=== PATIENT | female | born 1990 | race Caucasian/White ===

== ENCOUNTER 2017-09-17 18:32 | Emergency (ER) | payer OTHER ==
[~2017-09-17] VITALS: Ht 160 cm; Wt 70.8 kg
[~2017-09-17 18:32] MED LIST: ACETAMINOPHEN-1 EAC1 PO; ALKA-SELTZER P1 EA14 PO; AMOXICILLIN 50500 MG PO; AMOXICILLIN500 M1 PO; AMOXIL 875 MG875 M1 PO; CIPROFLOXACIN500 M1 PO; COLACE100 MG PO; FLEXERIL PO; HYDROCODONE-AP1 EAC6 PO; IBUPROFEN 200200 M1 PO; IBUPROFEN 800800 M1 PO; LIDOCAINE VISC100 ML SWISH&SPIT; MACROBID 100 M100 M1 PO; MIRALAX17 GM PO; NORCO 5-325 TA1 EAC1 PO; NORCO 5-325 TA1 EACH PO; PREDNISONE 10 M10 M1 PO; TMP-POLYMYXIN B10 ML OP; ZOFRAN4 MG PO
[2017-09-17] MEDS ORDERED: ZANAFLEX4 MG PO (19:46)
[2017-09-17 20:03] VITALS: BP 127/95
== END 2017-09-17 20:06 | disposition home or self-care (01) ==
LOC: M.ERS 18:32
DX: S16.1XXA Strain of muscle, fascia and tendon at neck level, initial encounter (principal); M43.6 Torticollis; G43.909 Migraine, unspecified, not intractable, without status migrainosus; F17.210 Nicotine dependence, cigarettes, uncomplicated; Z90.49 Acquired absence of other specified parts of digestive tract; Z88.1 Allergy status to other antibiotic agents; Z88.8 Allergy status to other drugs, medicaments and biological substances; X58.XXXA Exposure to other specified factors, initial encounter; Y93.89 Activity, other specified; Y92.89 Other specified places as the place of occurrence of the external cause; Y99.8 Other external cause status

== ENCOUNTER 2018-09-25 23:05 | Emergency (ER) | payer OTHER, MEDICAID ==
[~2018-09-25] VITALS: Ht 160 cm; Wt 68.0 kg
[~2018-09-25 23:05] MED LIST changes: +ZANAFLEX4 MG PO
[2018-09-25] MEDS ORDERED: PRENATAL (23:17)
[2018-09-25] MEDS ORDERED: BLEPHAMIDE EYE D OPHTHALMIC (23:32)
[2018-09-25 23:48] VITALS: BP 130/80
== END 2018-09-25 23:49 | disposition home or self-care (01) ==
LOC: M.ERS 23:05
DX: O26.892 Other specified pregnancy related conditions, second trimester (principal); H10.9 Unspecified conjunctivitis; G43.909 Migraine, unspecified, not intractable, without status migrainosus; O99.332 Smoking (tobacco) complicating pregnancy, second trimester; Z91.041 Radiographic dye allergy status; Z88.1 Allergy status to other antibiotic agents; Z88.6 Allergy status to analgesic agent; Z90.49 Acquired absence of other specified parts of digestive tract; Z3A.20 20 weeks gestation of pregnancy

== ENCOUNTER 2020-06-10 10:48 | Emergency (ER) | payer OTHER, MEDICAID ==
[~2020-06-10] VITALS: Ht 160 cm; Wt 72.6 kg
[~2020-06-10 10:48] MED LIST changes: +BLEPHAMIDE EYE D OPHTHALMIC; +PRENATAL
[2020-06-10] MEDS ORDERED: CENTANY30 GM TOP (12:16)
[2020-06-10] MEDS ORDERED: BACTRIM DS TAB1 EACH PO (12:16)
[2020-06-10] MEDS ORDERED: KEFLEX500 M1 PO (12:16)
[2020-06-10] MEDS ORDERED: CORTISPORIN OTI10 ML OTIC (12:18)
[2020-06-10] MEDS ORDERED: POLYMYXIN B/TMP10 ML OPHTHALMIC (12:18)
[2020-06-10 12:37] VITALS: BP 122/80
== END 2020-06-10 12:40 | disposition home or self-care (01) ==
LOC: M.ERS 10:48
DX: H57.12 Ocular pain, left eye (principal); B95.8 Unspecified staphylococcus as the cause of diseases classified elsewhere; H92.02 Otalgia, left ear; L08.9 Local infection of the skin and subcutaneous tissue, unspecified; G43.909 Migraine, unspecified, not intractable, without status migrainosus; F17.210 Nicotine dependence, cigarettes, uncomplicated; Z91.041 Radiographic dye allergy status; Z88.1 Allergy status to other antibiotic agents; Z88.6 Allergy status to analgesic agent; Z90.49 Acquired absence of other specified parts of digestive tract

== ENCOUNTER 2021-03-04 17:40 | Emergency (ER) | payer OTHER, MEDICAID ==
[~2021-03-04] VITALS: Ht 162.6 cm; Wt 72.6 kg
[~2021-03-04 17:40] MED LIST changes: +BACTRIM DS TAB1 EACH PO; +CENTANY30 GM TOP; +CORTISPORIN OTI10 ML OTIC; +KEFLEX500 M1 PO; +POLYMYXIN B/TMP10 ML OPHTHALMIC
[2021-03-04 19:42] VITALS: BP 122/89
== END 2021-03-04 19:42 | disposition home or self-care (01) ==
LOC: M.ERS 17:40
DX: U07.1 COVID-19 (principal); K14.8 Other diseases of tongue; G43.909 Migraine, unspecified, not intractable, without status migrainosus; F17.210 Nicotine dependence, cigarettes, uncomplicated; Z90.49 Acquired absence of other specified parts of digestive tract; Z91.041 Radiographic dye allergy status; Z88.6 Allergy status to analgesic agent; Z88.1 Allergy status to other antibiotic agents